=== PATIENT | female | born 1995 | race Two or more races ===

== ENCOUNTER 2025-03-21 16:44 | Emergency (ER) | payer OTHER ==
[2025-03-21 17:28] LABS: Absolute Lymphocytes (CBC) 0.5 K/uL (0.7-4.9); Hematocrit 41.6 % (36.0-45.0); Hemoglobin 14.0 g/dL (12.0-15.0); MCH 30.2 pg (27.0-35.0); MCHC 33.8 g/dL (32.0-36.0); MCV 89.4 fL (80-100); MPV 7.7 fL (7.6-11.3); Nucleated RBC Absolute Count 0.0 (0-0); Nucleated Red Blood Cells % 0.1 % (0-0); RBC Red Blood Cell Count 4.65 M/uL (3.86-4.86); White Blood Count 4.40 thou/uL (4.3-10.9)
[2025-03-21 17:44] LABS: ALT/SGPT 22.0 U/L (13-56); AST/SGOT 14.0 U/L (15-37); Albumin 3.7 g/dL (3.4-5.0); Albumin/Globulin Ratio 0.9 (1.1-1.8); Alkaline Phosphatase 58.0 U/L (45-117); Anion Gap 9.7 mEq/L (5.0-15.0); BUN Blood Urea Nitrogen 17.0 mg/dL (7-18); Globulin 3.9 g/dL (2.3-3.5); Glucose Level 88.0 mg/dL (74-106); Influenza A Ag Negative; Influenza B Ag Negative; Lipase 14.0 U/L (13-75); Potassium 3.7 mEq/L (3.5-5.1); SARS-CoV-2 Antigen Rapid Res Negative (Negative)
[2025-03-21] MEDS ORDERED: ONDANSETRON 4 MG/2 ML VIAL ONE (17:45)
[2025-03-21] MEDS ORDERED: NA CHLORIDE 0.9% 1,000 ML ONE (17:46)
[2025-03-21 18:42] LABS: Urine Crystals Unidentified Few /HPF (None Seen); Urine Culture Reflex Order NOT NEEDED; Urine Microscopic Reflex YN ORDER UMIC
--- NOTE | 2025-03-21 19:01 | EDPHYS ---
Physician Documentation [facility] Name: Jamal Arriaga Age: 29 yrs Sex: Female : 1995 Arrival Date: 03/21/2025 Time: 16:44 Bed 19 Private MD: ED Physician Quang Jerez HPI: 03/21 17:02 This 29 yrs old Female presents to ER via Ambulatory with complaints of Back Pain, Sore jh7 Throat. 17:02 29-year-old female with no significant past medical history presents to the ER for sore jh7 throat, nausea/vomiting, and left flank pain over the past couple of days. The patient reports that she believes her kids got her sick but reports that she develops kidney pain when she is dehydrated. Denies dysuria, hematuria, or fever.. 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 me1 Historical: - Allergies: 17:02 No Known Allergies; me1 - PMHx: 17:02 None; me1 - PSHx: 17:02 None; me1 - Immunization history:: Adult Immunizations up to date. - Infectious Disease History:: Denies. - Social history:: Smoking status: Patient reports the use of cigarette tobacco products, denies chronic smoking, but will smoke occasionally. ROS: 17:02 Constitutional: Per HPI jh7 Exam: 17:02 Constitutional: This is a well developed, well nourished patient who is awake, alert, jh7 and in no acute distress. Head/Face: Normocephalic, atraumatic. Eyes: Pupils equal round and reactive to light, extra-ocular motions intact. Lids and lashes normal. Conjunctiva and sclera are non-icteric and not injected. Cornea within normal limits. Periorbital areas with no swelling, redness, or edema. Neck: Trachea midline, no thyromegaly or masses palpated, and no cervical lymphadenopathy. Supple, full range of motion without nuchal rigidity, or vertebral point tenderness. No Meningismus. Cardiovascular: Regular rate and rhythm with a normal S1 and S2. No gallops, murmurs, or rubs. Normal PMI, no JVD. No pulse deficits. Respiratory: Lungs have equal breath sounds bilaterally, clear to auscultation and percussion. No rales, rhonchi or wheezes noted. No increased work of breathing, no retractions or nasal flaring. Abdomen/GI: Soft, non-tender, with normal bowel sounds. No distension or tympany. No guarding or rebound. No evidence of tenderness throughout. Skin: Warm, dry with normal turgor. Normal color with no rashes, no lesions, and no evidence of cellulitis. MS/ Extremity: Pulses equal, no cyanosis. Neurovascular intact. Full, normal range of motion. Neuro: Awake and alert, GCS 15, oriented to person, place, time, and situation. Motor strength 5/5 in all extremities. Sensory grossly intact. Normal gait. 17:02 ENT: Posterior pharynx: Uvula: normal, swelling, that is mild, erythema, that is moderate, 17:02 : CVA tenderness, on the left, Vital Signs: 17:00 BP 113 / 87; Pulse 110; Resp 18; Temp 98.8; Pulse Ox 99% ; Weight 83.91 kg; Height 5 me1 ft. 6 in. ; Pain 6/10; 18:02 BP 104 / 69; Pulse 100; Pulse Ox 100% ; rg5 19:07 BP 117 / 75; Pulse 98; Resp 18; Pulse Ox 100% ; rg5 17:00 Body Mass Index 29.86 (83.91 kg, 167.64 cm) me1 17:00 Pain Scale: Adult me1 MDM: 16:48 Medical Screening Exam initiated jh7 19:02 Differential diagnosis: Strep pharyngitis, COVID, influenza, dehydration, UTI, 7 pyelonephritis, gastroenteritis. Data reviewed: vital signs, nurses notes, lab test result(s). I considered the following discharge prescriptions or medication management in the emergency department Medications were administered in the Emergency Department. See MAR. Counseling: I had a detailed discussion with the patient and/or guardian regarding the historical points, exam findings, and any diagnostic results supporting the discharge/admit diagnosis, lab results, to return to the emergency department if symptoms worsen or persist or if there are any questions or concerns that arise at home. Response to treatment: the patient's symptoms have markedly improved after treatment. ED course: Clinical presentation consistent with strep pharyngitis. The patient was prescribed antibiotics and antiemetics. She was able to pass a p.o. challenge and was advised to return to the ER with any new or worsening symptoms.. 03/21 17:03 Order name: Group A Streptococcus Rapid; Complete Time: 18:03 [facility] 03/21 17:03 Order name: COVID-19 Ag + Flu A+B Ag; Complete Time: 18:03 [facility] 03/21 17:03 Order name: CBC with Diff; Complete Time: 18:03 [facility] 03/21 17:03 Order name: CMP; Complete Time: 18:03 [facility] 03/21 17:03 Order name: Lipase; Complete Time: 18:03 [facility] 03/21 17:03 Order name: UA Rfx Charanjit Cult if indicated; Complete Time: 18:47 [facility] 03/21 17:57 Order name: Test, Urine; Complete Time: 18:57 [facility] 03/21 17:03 Order name: IV Saline Lock; Complete Time: 17:26 [facility] 03/21 17:03 Order name: Labs collected and sent; Complete Time: 17:26 [facility] Administered Medications: 17:56 Drug: NS 0.9% IV 1000 ml IV at 1 bolus Per protocol; to be given as a bolus over 60 rg5 minutes Route: IV; Rate: 1 bolus; Site: right antecubital; 19:00 Follow up: IV Status: Completed infusion rg5 17:56 Drug: Ondansetron IVP 4 mg IVP once; over 2 minutes Route: IVP; Site: right antecubital;rg5 19:08 Follow up: Response: No adverse reaction rg5 Disposition Summary: 03/21/25 19:00 Discharge Ordered Notes: Location: Home [facility] Problem: new [facility] Symptoms: have improved [facility] Condition: Stable [facility] Diagnosis - Streptococcal pharyngitis [facility] - Dehydration [facility] - Nausea with vomiting, unspecified [facility] Followup: [facility] - With: Private Physician - When: 2 - 3 days - Reason: Recheck today's complaints Discharge Instructions: - Discharge Summary Sheet [facility] - Dehydration, Adult [facility] - Strep Throat, Adult [facility] Forms: - Medication Reconciliation Form [facility] - Antibiotic Education [facility] - Patient Portal Instructions [facility] - Leadership Thank You Letter [facility] Prescriptions: - ondansetron 4 mg Oral Tablet,disintegrating - take 1 tablet ORAL route every 4-6 hours As needed as needed for nausea and [facility] vomiting; 20 tablet; Refills: 0, Product Selection Permitted - Amoxicillin 500 mg Oral capsule - take 1 capsule ORAL route 2 times per day for 10 days; 20 tablet; Refills: 0, jh7 Product Selection Permitted Addendum: 03/26/2025 07:55 Co-signature as Attending Physician, Quang Jerez MD I agree with the assessment and c gunderson plan of care. Signatures: Dispatcher [employer] Quang Howard MD MD cha Hadash, Jennifer, PIPE CUTTER PIPE CUTTER jh7 Nidhi Hammonds, RN RN me1 Sam Hu RN RN rg5
--- NOTE | 2025-03-21 19:01 | ER ---
Nurse's Notes [facility] Name: Jamal Arriaga Age: 29 yrs Sex: Female : 1995 Arrival Date: 03/21/2025 Time: 16:44 Bed 19 Private MD: Diagnosis: Streptococcal pharyngitis;Dehydration;Nausea with vomiting, unspecified Presentation: 03/21 17:00 Chief complaint: Patient states: n/v/d and sore throat since yesterday (kids have been me1 sick), today left flank pain 11/19 "dull ache". Unsure of date of last period, requested test. Coronavirus screen: Vaccine status: Patient reports being unvaccinated. Ebola Screen: No symptoms or risks identified at this time. Initial Sepsis Screen: Does the patient meet any 2 criteria? HR > 90 bpm. Does the patient have a suspected source of infection? No. Patient's initial sepsis screen is negative. Risk Assessment: Do you want to hurt yourself or someone else? Patient reports no desire to harm self or others. Onset of symptoms was March 20, 2025. 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 [facility] Historical: - Allergies: 17:02 No Known Allergies; me1 - PMHx: 17:02 None; me1 - PSHx: 17:02 None; me1 - Immunization history:: Adult Immunizations up to date. - Infectious Disease History:: Denies. - Social history:: Smoking status: Patient reports the use of cigarette tobacco products, denies chronic smoking, but will smoke occasionally. Screenin:02 [facility] ED Fall Risk Assessment (Adult) History of falling in the last 3 months, rg5 including since admission No falls in past 3 months (0 pts) Confusion or Disorientation No (0 pts) Intoxicated or Sedated No (0 pts) Impaired Gait No (0 pts) Mobility Assist Device Used No (0 pt) Altered Elimination No (0 pt) Score/Fall Risk Level 0 - 2 = Low Risk Oriented to surroundings, Maintained a safe environment. Abuse screen: Denies threats or abuse. Nutritional screening: No deficits noted. Tuberculosis screening: No symptoms or risk factors identified. Assessment: 18:02 General: Appears uncomfortable, Behavior is calm, cooperative, appropriate for age. rg5 Pain: Complains of pain in back. Neuro: Level of Consciousness is awake, alert, obeys commands, Oriented to person, place, time, situation. Cardiovascular: Patient's skin is warm and dry. Respiratory: Airway is patent Trachea midline Respiratory effort is even, unlabored. GI: Abdomen is round non-distended, Reports upper abdominal pain. : No signs and/or symptoms were reported regarding the genitourinary system. EENT: Derm: Skin is intact, Skin is dry, Skin is normal. Musculoskeletal: Circulation, motion, and sensation intact. Range of motion: intact in all extremities. 19:26 Reassessment: Patient and/or family updated on plan of care and expected duration. Pain rg5 level reassessed. Patient is alert, oriented x 3, equal unlabored respirations, skin warm/dry/pink. Patient states feeling better. Patient states symptoms have improved. Vital Signs: 17:00 BP 113 / 87; Pulse 110; Resp 18; Temp 98.8; Pulse Ox 99% ; Weight 83.91 kg; Height 5 me1 ft. 6 in. ; Pain 6/10; 18:02 BP 104 / 69; Pulse 100; Pulse Ox 100% ; rg5 19:07 BP 117 / 75; Pulse 98; Resp 18; Pulse Ox 100% ; rg5 17:00 Body Mass Index 29.86 (83.91 kg, 167.64 cm) me1 17:00 Pain Scale: Adult ks1 ED Course: 16:47 Patient arrived in ED. al6 16:48 [facility]all[facility]NP [facility] 16:48 Quang Jerez MD is Attending Physician. jh7 17:02 Triage completed. me1 17:02 Arm band placed on Patient placed in an exam room. me1 17:17 Sam Hu, DAVID is Primary Nurse. rg5 17:26 Initial lab(s) drawn, by bottle labeler, sent to lab. Inserted saline lock: 20 gauge in right ts3 antecubital area, using aseptic technique. Blood collected. Flushed with 10 mL NS. 17:26 COVID-19 Ag + Flu A+B Ag Sent. ts3 17:26 Group A Streptococcus Rapid Sent. ts3 18:02 Patient has correct armband on for positive identification. Bed in low position. Call rg5 light in reach. Door closed. Noise minimized. 18:02 No provider procedures requiring assistance completed. rg5 19:27 IV discontinued, bleeding controlled, No redness/swelling at site. Pressure dressing rg5 applied. Administered Medications: 17:56 Drug: NS 0.9% IV 1000 ml IV at 1 bolus Per protocol; to be given as a bolus over 60 rg5 minutes Route: IV; Rate: 1 bolus; Site: right antecubital; 19:00 Follow up: IV Status: Completed infusion rg5 17:56 Drug: Ondansetron IVP 4 mg IVP once; over 2 minutes Route: IVP; Site: right antecubital;rg5 19:08 Follow up: Response: No adverse reaction rg5 Medication: 18:02 VIS not applicable for this client. rg5 Outcome: 19:00 Discharge ordered by . [facility] 19:26 Discharged to home ambulatory, rg5 19:26 Condition: stable 19:26 Discharge instructions given to patient, Instructed on discharge instructions, Demonstrated understanding of Prescriptions given X 2, 19:27 Patient left the ED. rg5 Signatures: Courtney Caballero, COMPUTER OPERATIONS SPECIALIST COMPUTER OPERATIONS SPECIALIST 7 Nidhi Hammonds, RN RN me1 Sam Hu RN RN rg5 Candis Lara6 Darby Guthrie ts3 Corrections: (The following items were deleted from the chart) 17:03 17:00 Chief complaint: Patient states: n/v/d and sore throat since yesterday (kids have me1 been sick), today left flank pain 6/10 "dull ache" ks1
[2025-03-21 19:37] VITALS: TEMP 98.8
[2025-03-21 19:38] VITALS: O2SAT 100
[2025-03-21 19:39] VITALS: BP 117/75
== END 2025-03-21 19:27 | disposition home or self-care (01) ==
LOC: ER 16:44
DX: J02.0 Streptococcal pharyngitis (principal); E86.0 Dehydration; F17.210 Nicotine dependence, cigarettes, uncomplicated; Z11.52 Encounter for screening for COVID-19
CPT/HCPCS: 96361; 85025; 81001; 36415; 81025; 83690; 80053; 96374; 99284; 87428; J2405; J7030